=== PATIENT | female | born 1990 | race Caucasian/White ===

== ENCOUNTER 2016-10-03 16:11 | Emergency (ER) | payer OTHER ==
[~2016-10-03 16:11] MED LIST: AUGMENTIN TAB875 MG PO; CLINDAMYCIN HC300 MG PO; COUMADIN5 MG PO; DIGOXIN125 MCG PO; IBUPROFEN600 MG PO; LISINOPRIL2.5 MG PO; LOVENOX SYR100 MG/ML SQ; METOPROLOL TART25 MG PO; PROAIR HFA8.5 GM PO
[2016-10-03 16:57] LABS: HEMOGLOBIN 14.7 gm/dl (12.3-15.3); RED BLOOD COUNT 4.9 M/UL (4.00-5.10); WHITE BLOOD COUNT 7.3 K/UL (4.5-11.0)
[2016-10-03 17:38] LABS: BUN/CREATININE RATIO 24 (0-10)
== END 2016-10-03 22:10 | disposition left against medical advice (07) ==
LOC: ER1 16:11
PROVIDERS: Family Medicine
DX: I95.89 Other hypotension (principal); I42.9 Cardiomyopathy, unspecified; R79.1 Abnormal coagulation profile; R55 Syncope and collapse; F17.200 Nicotine dependence, unspecified, uncomplicated; Z88.0 Allergy status to penicillin; Z88.5 Allergy status to narcotic agent; Z88.6 Allergy status to analgesic agent; Z79.01 Long term (current) use of anticoagulants; Z79.899 Other long term (current) drug therapy
CPT/HCPCS: 36415; 70450; 71010; 80053; 80162; 80307; 81001; 82550; 82553; 82962; 83605; 83874; 83880; 84484; 85025; 85610; 85730; 87086; 93005; 96374; 99285; G0480; J2310; Q9963

== ENCOUNTER → 2020-06-10 | Outpatient (CLI) | payer OTHER ==
[~2020-06-10] MED LIST changes: +KEFLEX500 MG PO; +Voltaren gel 1% TOP; +ZOFRAN ODT 4 MG4 MG SL
== END ==
LOC: HEART 5 08:30
DX: I50.22 Chronic systolic (congestive) heart failure (principal); I95.1 Orthostatic hypotension; R07.9 Chest pain, unspecified; I47.2 Ventricular tachycardia; I08.1 Rheumatic disorders of both mitral and tricuspid valves; R93.1 Abnormal findings on diagnostic imaging of heart and coronary circulation; Z95.0 Presence of cardiac pacemaker
CPT/HCPCS: 93306

== ENCOUNTER → 2020-07-07 | Outpatient (CLI) | payer OTHER | LOC: HEART 5 11:39 | DX: Z01.818 Encounter for other preprocedural examination (principal); R06.02 Shortness of breath; R94.2 Abnormal results of pulmonary function studies; Z87.891 Personal history of nicotine dependence | CPT/HCPCS: 71046; 94010; 94729 ==

== ENCOUNTER → 2020-08-02 | Outpatient (CLI) | payer OTHER | LOC: SLEEP 14:44 | DX: G47.33 Obstructive sleep apnea (adult) (pediatric) (principal); E66.01 Morbid (severe) obesity due to excess calories; I42.0 Dilated cardiomyopathy; I50.22 Chronic systolic (congestive) heart failure; Z86.711 Personal history of pulmonary embolism | CPT/HCPCS: 95810 ==

== ENCOUNTER 2020-11-01 12:43 | Emergency (ER) | payer OTHER | END 2020-11-01 13:17 | disposition left against medical advice (07) | LOC: ER1 12:43 | DX: Z53.21 Procedure and treatment not carried out due to patient leaving prior to being seen by health care provider (principal) ==

== ENCOUNTER 2021-01-25 13:54 | Inpatient (IN) | payer OTHER ==
[~2021-01-25] VITALS: Ht 167.6 cm; Wt 142.9 kg
[~2021-01-25 13:54] MED LIST changes: -COUMADIN5 MG PO; -LISINOPRIL2.5 MG PO
[2021-01-25 16:07] LABS: RED BLOOD COUNT 4.78 M/UL (4.00-5.10); WHITE BLOOD COUNT 5.9 K/UL (4.5-11.0)
[2021-01-25 17:07] LABS: BUN/CREATININE RATIO 7 (0-10)
[2021-01-26 05:18] LABS: HEMOGLOBIN 13.6 gm/dl (12.3-15.3); RED BLOOD COUNT 4.71 M/UL (4.00-5.10)
[2021-01-26 05:28] LABS: WHITE BLOOD COUNT 2.9 K/UL (4.5-11.0)
[2021-01-26 05:54] LABS: BUN/CREATININE RATIO 15 (0-10)
[2021-01-26] MEDS ORDERED: WARFARIN SODIUM5 MG PO (11:13)
[2021-01-26] MEDS ORDERED: FLUDROCORTISON0.1 MG PO (12:23)
[2021-01-26] MEDS ORDERED: WARFARIN SODIU7.5 MG PO (12:23)
[2021-01-26] MEDS ORDERED: METOPROLOL TART25 MG PO (12:25)
[2021-01-26] MEDS ORDERED: OMEPRAZOLE40 MG PO (12:25)
[2021-01-26] MEDS ORDERED: DAILY VALUE1 EACH PO (12:26)
[2021-01-26] MEDS ORDERED: CALCIUM 1,0001 EACH PO (12:27)
[2021-01-26] MEDS ORDERED: VITAMIN B-121000 MCG PO (12:29)
[2021-01-26] MEDS ORDERED: B COMPLEX1 EACH PO (12:29)
[2021-01-26] MEDS ORDERED: VITAMIN D-40010 MCG PO (12:32)
[2021-01-26] MEDS ORDERED: FERROUS SULFAT325 M2 PO (12:34)
[2021-01-26] MEDS ORDERED: VITAMIN C 500500 MG PO (12:34)
[2021-01-26] MEDS ORDERED: TYLENOL 8 HOUR650 MG PO (12:35)
[2021-01-26] MEDS ORDERED: TYLENOL EXTRA500 MG PO (12:36)
[2021-01-26] MEDS ORDERED: LISINOPRIL2.5 MG PO (21:22)
[2021-01-27 07:00] LABS: HEMOGLOBIN 13.4 gm/dl (12.3-15.3); RED BLOOD COUNT 4.87 M/UL (4.00-5.10)
[2021-01-27 07:05] LABS: WHITE BLOOD COUNT 5.1 K/UL (4.5-11.0)
[2021-01-27 07:43] LABS: BUN/CREATININE RATIO 21 (0-10)
[2021-01-28 06:43] LABS: RED BLOOD COUNT 4.68 M/UL (4.00-5.10); WHITE BLOOD COUNT 5.1 K/UL (4.5-11.0)
[2021-01-28 07:06] LABS: BUN/CREATININE RATIO 21 (0-10)
[2021-01-29 07:45] LABS: HEMOGLOBIN 12.8 gm/dl (12.3-15.3); RED BLOOD COUNT 4.66 M/UL (4.00-5.10); WHITE BLOOD COUNT 4.9 K/UL (4.5-11.0)
[2021-01-29 08:23] LABS: BUN/CREATININE RATIO 28 (0-10)
[2021-01-29 14:52] LABS: BUN/CREATININE RATIO 31 (0-10)
[2021-01-30 08:02] LABS: HEMOGLOBIN 13.2 gm/dl (12.3-15.3); RED BLOOD COUNT 4.76 M/UL (4.00-5.10); WHITE BLOOD COUNT 4.2 K/UL (4.5-11.0)
[2021-01-30 08:17] LABS: BUN/CREATININE RATIO 26 (0-10)
[2021-01-30] MEDS ORDERED: DECADRON6 MG PO (12:47)
[2021-01-30] MEDS ORDERED: OMNICEF 300 MG300 MG PO (12:50)
[2021-01-30] MEDS ORDERED: VENTOLIN HFA 66.7 GM INH (12:50)
[2021-01-30 17:44] LABS: BUN/CREATININE RATIO 32 (0-10)
[2021-01-31 07:34] LABS: BUN/CREATININE RATIO 37 (0-10)
--- NOTE | 2021-01-31 10:28 | NUR ---
dr. powell aware of patient abnormal pt with inr
--- NOTE | 2021-01-31 15:02 | NUR ---
patient pulse ox on room air 98%. no s/sx of respiratory insufficiency.
--- NOTE | 2021-01-31 15:04 | NUR ---
dr. powell on the floor and received order to d/c patient without oxygen.
--- NOTE | 2021-01-31 16:47 | NUR ---
instructed patient how to use pulse oxymetry and able to identifies pulse ox reading from pulse.
== END 2021-01-31 17:11 | disposition home or self-care (01) | DRG 177 ==
LOC: ER1 13:54 → CDU 22:22 → M/S 22:22
PROVIDERS: Physician Assistant Medical; ADMIT Internal Medicine
PROC: XW033E5 Introduction of Remdesivir Anti-infective into Peripheral Vein, Percutaneous Approach, New Technology Group 5 (ICD-10-PCS; principal; 2021-01-25)
PROC: 3E0333Z Introduction of Anti-inflammatory into Peripheral Vein, Percutaneous Approach (ICD-10-PCS; 2021-01-25)
PROC: 8E0ZXY6 Isolation (ICD-10-PCS; 2021-01-26)
DX: U07.1 COVID-19 (principal); J12.82 Pneumonia due to coronavirus disease 2019; J96.01 Acute respiratory failure with hypoxia; J15.9 Unspecified bacterial pneumonia; A08.39 Other viral enteritis; I47.2 Ventricular tachycardia; I42.8 Other cardiomyopathies; Z68.41 Body mass index [BMI] 40.0-44.9, adult; R04.2 Hemoptysis; R79.1 Abnormal coagulation profile; G47.33 Obstructive sleep apnea (adult) (pediatric); E87.6 Hypokalemia; T38.0X5A Adverse effect of glucocorticoids and synthetic analogues, initial encounter; E66.01 Morbid (severe) obesity due to excess calories; D72.819 Decreased white blood cell count, unspecified; Z90.49 Acquired absence of other specified parts of digestive tract; Z88.0 Allergy status to penicillin; Z88.8 Allergy status to other drugs, medicaments and biological substances; Z98.84 Bariatric surgery status; Z86.711 Personal history of pulmonary embolism; Z79.01 Long term (current) use of anticoagulants; Z95.810 Presence of automatic (implantable) cardiac defibrillator; Z88.5 Allergy status to narcotic agent; Z91.010 Allergy to peanuts; Z79.52 Long term (current) use of systemic steroids; Z84.89 Family history of other specified conditions
CPT/HCPCS: 36415; 36600; 71045; 80048; 80053; 81001; 82550; 82553; 82803; 83036; 83605; 83735; 83874; 83880; 84484; 84703; 85025; 85027; 85379; 85610; 87040; 87070; 87086; 87205; 93005; 94640; 94664; 94760; 96374; 96375; 99285; G0378; J0456; J0696; J1100; J7030; Q9967; U0002

== ENCOUNTER → 2021-03-09 | Outpatient (CLI) | payer OTHER ==
[~2021-03-09] MED LIST changes: +B COMPLEX1 EACH PO; +CALCIUM 1,0001 EACH PO; +DAILY VALUE1 EACH PO; +DECADRON6 MG PO; +FERROUS SULFAT325 M2 PO; +FLUDROCORTISON0.1 MG PO; +LISINOPRIL2.5 MG PO; +OMEPRAZOLE40 MG PO; +OMNICEF 300 MG300 MG PO; +TYLENOL 8 HOUR650 MG PO; +TYLENOL EXTRA500 MG PO; +VENTOLIN HFA 66.7 GM INH; +VITAMIN B-121000 MCG PO; +VITAMIN C 500500 MG PO; +VITAMIN D-40010 MCG PO; +WARFARIN SODIU7.5 MG PO; +WARFARIN SODIUM5 MG PO
== END ==
LOC: HEART 5 14:46
DX: I42.0 Dilated cardiomyopathy (principal); I50.22 Chronic systolic (congestive) heart failure; R06.02 Shortness of breath; I27.20 Pulmonary hypertension, unspecified; I08.1 Rheumatic disorders of both mitral and tricuspid valves; Z95.0 Presence of cardiac pacemaker
CPT/HCPCS: 93306

== ENCOUNTER → 2021-04-18 | Outpatient (CLI) | payer OTHER ==
[2021-04-18 09:31] LABS: HEMOGLOBIN 14.1 gm/dl (12.3-15.3); RED BLOOD COUNT 4.52 M/UL (4.00-5.10); WHITE BLOOD COUNT 6.8 K/UL (4.5-11.0)
[2021-04-18 10:06] LABS: BUN/CREATININE RATIO 21 (0-10)
[2021-04-19 08:13] LABS: THYROXINE (T4) 6.5 ug/dL (4.5-12.0); VITAMIN D, 25-HYDROXY 45.8 ng/mL (30.0-100.0)
== END ==
LOC: LAB 07:25
PROVIDERS: Nurse Practitioner
DX: E78.5 Hyperlipidemia, unspecified (principal); E66.8 Other obesity; I10 Essential (primary) hypertension; I42.9 Cardiomyopathy, unspecified; E66.01 Morbid (severe) obesity due to excess calories; K21.9 Gastro-esophageal reflux disease without esophagitis; H91.92 Unspecified hearing loss, left ear; Z95.810 Presence of automatic (implantable) cardiac defibrillator; Z95.0 Presence of cardiac pacemaker
CPT/HCPCS: 36415; 80053; 80061; 81001; 83036; 84436; 84443; 84480; 85025

== ENCOUNTER 2021-04-19 20:10 | Observation (INO) | payer OTHER ==
[~2021-04-19] VITALS: Ht 170.2 cm; Wt 123.8 kg
[2021-04-19 20:40] LABS: HEMOGLOBIN 13.6 gm/dl (12.3-15.3); RED BLOOD COUNT 4.34 M/UL (4.00-5.10); WHITE BLOOD COUNT 8.1 K/UL (4.5-11.0)
[2021-04-19 21:09] LABS: BUN/CREATININE RATIO 26 (0-10)
[2021-04-20 05:54] LABS: HEMOGLOBIN 12.5 gm/dl (12.3-15.3); RED BLOOD COUNT 4.01 M/UL (4.00-5.10); WHITE BLOOD COUNT 7.1 K/UL (4.5-11.0)
[2021-04-20 06:10] LABS: BUN/CREATININE RATIO 19 (0-10)
[2021-04-20] MEDS ORDERED: AMIODARONE HCL200 MG PO (15:11)
== END 2021-04-20 16:01 | disposition home or self-care (01) ==
LOC: ER1 20:10 → CDU 23:35 → MED SURG 4 23:35
PROVIDERS: Physician Assistant; ADMIT Internal Medicine
DX: I49.01 Ventricular fibrillation (principal); I49.3 Ventricular premature depolarization; I42.8 Other cardiomyopathies; E87.6 Hypokalemia; R77.8 Other specified abnormalities of plasma proteins; D50.9 Iron deficiency anemia, unspecified; G47.33 Obstructive sleep apnea (adult) (pediatric); I27.20 Pulmonary hypertension, unspecified; E66.01 Morbid (severe) obesity due to excess calories; Z68.41 Body mass index [BMI] 40.0-44.9, adult; Z20.822 Contact with and (suspected) exposure to COVID-19; Z86.16 Personal history of COVID-19; Z86.79 Personal history of other diseases of the circulatory system; Z95.810 Presence of automatic (implantable) cardiac defibrillator; Z86.711 Personal history of pulmonary embolism; Z79.01 Long term (current) use of anticoagulants; Z91.010 Allergy to peanuts; Z79.899 Other long term (current) drug therapy; Z98.84 Bariatric surgery status; Z90.49 Acquired absence of other specified parts of digestive tract; Z88.0 Allergy status to penicillin; Z88.5 Allergy status to narcotic agent; Z88.6 Allergy status to analgesic agent; Z79.52 Long term (current) use of systemic steroids
CPT/HCPCS: 36415; 70450; 71045; 73562; 80048; 80053; 80162; 81001; 82550; 82553; 83735; 83874; 84484; 84703; 85025; 85379; 85610; 93005; 99285; G0378; J3480; U0002

== ENCOUNTER 2021-04-26 20:15 | Inpatient (IN) | payer OTHER ==
[~2021-04-26] VITALS: Ht 172.7 cm; Wt 124.3 kg
[~2021-04-26 20:15] MED LIST changes: +AMIODARONE HCL200 MG PO
[2021-04-26 20:58] LABS: HEMOGLOBIN 13.4 gm/dl (12.3-15.3); RED BLOOD COUNT 4.32 M/UL (4.00-5.10); WHITE BLOOD COUNT 7.3 K/UL (4.5-11.0)
[2021-04-26 21:21] LABS: BUN/CREATININE RATIO 19 (0-10)
[2021-04-27] MEDS ORDERED: AMIODARONE HCL200 MG PO (01:16)
--- NOTE | 2021-04-27 02:59 | NUR ---
CALLED SHIRA MARK FROM ER TO ASK IF THE MAGNESIUM IV WAS GIVEN IN ER. SHE STATES THAT SHE DID NOT GIVE IT. CALLED DR BARBOSA TO CLARIFY MAGNESIUM LEVEL AND IV ORDER TO GIVE. STATES TO GO AHEAD AND GIVE IV MAG.
--- NOTE | 2021-04-27 05:17 | NUR ---
PATIENT NOTED TO BE HAVING RUNS OF VTACH NON-SUSTAINED. NOTIFIED DR. BARBOSA NO NEW ORDERS AT THIS TIME. CARDIOLOGY IS CONSULTED TO SEE TODAY. PT IS ASLEEP AND HAVING NO SYMPTOMS. VS FOLLOWS. 115/63 HR 64 02 94 ON ROOM AIR.
[2021-04-27 07:24] LABS: BUN/CREATININE RATIO 12 (0-10)
[2021-04-28 07:47] LABS: RED BLOOD COUNT 3.95 M/UL (4.00-5.10); WHITE BLOOD COUNT 7.3 K/UL (4.5-11.0)
[2021-04-28 08:23] LABS: BUN/CREATININE RATIO 12 (0-10)
[2021-04-29] MEDS ORDERED: AMIODARONE HCL200 MG PO ×2 (10:14)
[2021-04-29] MEDS ORDERED: ASPIRIN EC81 MG PO (10:14)
[2021-04-29] MEDS ORDERED: MEXILETINE HCL200 MG PO (10:14)
== END 2021-04-29 12:08 | disposition home or self-care (01) | DRG 309 ==
LOC: ER1 20:15 → CDU 22:57 → PROG CARE 22:57 → CCU 04-27 13:10 → PROG CARE 04-28 11:53
PROVIDERS: Emergency Medicine; ADMIT Internal Medicine
DX: I49.01 Ventricular fibrillation (principal); I50.22 Chronic systolic (congestive) heart failure; Z68.41 Body mass index [BMI] 40.0-44.9, adult; I42.8 Other cardiomyopathies; E66.01 Morbid (severe) obesity due to excess calories; Z86.16 Personal history of COVID-19; G47.33 Obstructive sleep apnea (adult) (pediatric); I95.1 Orthostatic hypotension; I11.0 Hypertensive heart disease with heart failure; E87.6 Hypokalemia; Z86.711 Personal history of pulmonary embolism; Z79.01 Long term (current) use of anticoagulants; Z90.49 Acquired absence of other specified parts of digestive tract; Z98.84 Bariatric surgery status; Z88.0 Allergy status to penicillin; Z88.5 Allergy status to narcotic agent; Z91.010 Allergy to peanuts; Z88.8 Allergy status to other drugs, medicaments and biological substances; Z99.81 Dependence on supplemental oxygen; Z95.810 Presence of automatic (implantable) cardiac defibrillator; Z79.82 Long term (current) use of aspirin; Z79.899 Other long term (current) drug therapy
CPT/HCPCS: 36415; 71045; 80048; 80053; 80162; 82550; 82553; 83735; 83874; 84439; 84443; 84484; 85025; 85610; 93005; 95819; 99285; J3475; U0002

== ENCOUNTER 2021-05-01 17:16 | Emergency (ER) | payer OTHER ==
[~2021-05-01 17:16] MED LIST changes: +ASPIRIN EC81 MG PO; +MEXILETINE HCL200 MG PO
[2021-05-01 17:52] LABS: HEMOGLOBIN 13.8 gm/dl (12.3-15.3); RED BLOOD COUNT 4.45 M/UL (4.00-5.10); WHITE BLOOD COUNT 7.1 K/UL (4.5-11.0)
[2021-05-01 18:21] LABS: BUN/CREATININE RATIO 23 (0-10)
== END 2021-05-01 23:25 | disposition home or self-care (01) ==
LOC: ER1 17:16
PROVIDERS: Physician Assistant
DX: R07.89 Other chest pain (principal); Z20.822 Contact with and (suspected) exposure to COVID-19
CPT/HCPCS: 71045; 80053; 82550; 82553; 83735; 83874; 84484; 85025; 93005; 99285; U0002

== ENCOUNTER → 2021-05-20 | Outpatient (CLI) | payer OTHER | LOC: EROP 11:16 | DX: I50.22 Chronic systolic (congestive) heart failure (principal); Z20.822 Contact with and (suspected) exposure to COVID-19 | CPT/HCPCS: U0003 ==

== ENCOUNTER → 2021-06-28 | Outpatient (CLI) | payer OTHER ==
[2021-06-30 08:14] LABS: CALCIUM, SERUM 9.1 mg/dL (8.7-10.2); CREATININE, SERUM 0.62 mg/dL (0.57-1.00); POTASSIUM, SERUM 4.8 mmol/L (3.5-5.2)
== END ==
LOC: LAB 14:43
PROVIDERS: Internal Medicine
DX: I50.22 Chronic systolic (congestive) heart failure (principal)
CPT/HCPCS: 36415; 80048

== ENCOUNTER → 2021-09-16 | Outpatient (CLI) | payer OTHER | LOC: HEART 5 09:26 | DX: R06.02 Shortness of breath (principal); Z79.899 Other long term (current) drug therapy; Z87.891 Personal history of nicotine dependence | CPT/HCPCS: 94060; 94729 ==

== ENCOUNTER → 2021-11-17 | Outpatient (CLI) | payer OTHER ==
[2021-11-17 10:05] LABS: HEMOGLOBIN 13.7 gm/dl (12.3-15.3); RED BLOOD COUNT 4.38 M/UL (4.00-5.10); WHITE BLOOD COUNT 6.1 K/UL (4.5-11.0)
[2021-11-17 10:25] LABS: BUN/CREATININE RATIO 14 (0-10)
[2021-11-18 08:15] LABS: VITAMIN D, 25-HYDROXY 45.5 ng/mL (30.0-100.0)
[2021-11-18 09:15] LABS: THYROXINE (T4) 11.1 ug/dL (4.5-12.0)
== END ==
LOC: LAB 09:42
PROVIDERS: Nurse Practitioner
DX: I10 Essential (primary) hypertension (principal); L25.9 Unspecified contact dermatitis, unspecified cause; L65.9 Nonscarring hair loss, unspecified; I42.7 Cardiomyopathy due to drug and external agent; Z95.0 Presence of cardiac pacemaker; K21.9 Gastro-esophageal reflux disease without esophagitis; I42.9 Cardiomyopathy, unspecified; E78.5 Hyperlipidemia, unspecified; R53.83 Other fatigue
CPT/HCPCS: 36415; 80053; 80061; 81001; 83036; 84436; 84443; 84480; 85025

== ENCOUNTER → 2022-01-26 | Outpatient (CLI) | payer OTHER ==
[2022-01-26 12:39] LABS: BUN/CREATININE RATIO 12 (0-10)
== END ==
LOC: LAB 11:41
PROVIDERS: Internal Medicine
DX: I50.22 Chronic systolic (congestive) heart failure (principal)
CPT/HCPCS: 36415; 80048; 83880

== ENCOUNTER → 2022-02-07 | Outpatient (CLI) | payer OTHER ==
[~2022-02-07] VITALS: Ht 170.2 cm; Wt 87.1 kg
[~2022-02-07] MED LIST changes: +BIOTIN PLUS KE1 EACH PO; +CLEOCIN HCL300 MG PO; +FARXIGA10 MG PO; +K-TAB ER20 MEQ PO; +MIDODRINE HCL5 MG PO
[2022-02-07 09:21] LABS: HEMOGLOBIN 14.6 gm/dl (12.3-15.3); RED BLOOD COUNT 4.44 M/UL (4.00-5.10); WHITE BLOOD COUNT 6.6 K/UL (4.5-11.0)
[2022-02-07 09:43] LABS: BUN/CREATININE RATIO 16 (0-10)
== END ==
LOC: CATH 08:30
PROVIDERS: Internal Medicine Cardiovascular Disease
DX: Z45.02 Encounter for adjustment and management of automatic implantable cardiac defibrillator (principal); I50.22 Chronic systolic (congestive) heart failure; I42.8 Other cardiomyopathies; I47.2 Ventricular tachycardia; I42.0 Dilated cardiomyopathy; I95.1 Orthostatic hypotension; E66.9 Obesity, unspecified; G47.33 Obstructive sleep apnea (adult) (pediatric); Z87.891 Personal history of nicotine dependence; Z86.711 Personal history of pulmonary embolism; Z86.16 Personal history of COVID-19; Z88.6 Allergy status to analgesic agent; Z88.5 Allergy status to narcotic agent; Z88.0 Allergy status to penicillin; Z91.010 Allergy to peanuts; Z79.899 Other long term (current) drug therapy; Z79.82 Long term (current) use of aspirin; Z79.84 Long term (current) use of oral hypoglycemic drugs; Z98.51 Tubal ligation status; Z98.84 Bariatric surgery status; Z68.30 Body mass index [BMI] 30.0-30.9, adult
CPT/HCPCS: 33240; 71045; 80048; 85025; 93641; 99152; 99153; C1721; J2001; J2250; J3010; J3370; J7040; J7050; J7070